=== PATIENT | female | born 1985 | race Caucasian/White ===

== ENCOUNTER 2018-07-21 14:51 | Inpatient (IN) | payer MEDICAID ==
[~2018-07-21] VITALS: Ht 165.1 cm; Wt 81.0 kg
[2018-07-21 15:02] VITALS: Ht 165.1 cm; Wt 81.0 kg
[2018-07-21 15:45] LABS: BASOPHIL % 0.4 % (0-2); PLATELET COUNT 262 x10^3mcL (130-400); RED CELL DISTRIBUTION WIDTH 14.5 % (11.5-14.5)
[2018-07-21 15:50] LABS: CALCIUM 8.2 mg/dL (8.5-10.1); CARBON DIOXIDE 24.2 mmol/L (21-32); CHLORIDE SERUM 106 mmol/L (98-107); CREATININE SERUM 0.6 mg/dL (0.6-1.0); GFR1 > 60 mL/min; GLUCOSE SERUM 139 mg/dL (74-106); POTASSIUM SERUM 3.1 mmol/L (3.5-5.1); SODIUM SERUM 141 mmol/L (136-145)
[2018-07-21 15:55] LABS: ALBUMIN 3.8 g/dL (3.4-5.0); ALKALINE PHOSPHATASE 98 U/L (46-116); ALT/SGPT 36 U/L (14-59); AST/SGOT 22 U/L (15-37); BILIRUBIN TOTAL 0.17 mg/dL (0.20-1.00); TOTAL PROTEIN, SERUM 7.7 g/dL (6.4-8.2)
[2018-07-21 20:38] VITALS: BP 117/56
[2018-07-21 21:13] LABS: CHOLESTEROL/HDL RATIO 2.6; MAGNESIUM 2.1 mg/dL (1.8-2.4); PHOSPHOROUS 2.5 mg/dL (2.5-4.9)
[2018-07-21 21:16] VITALS: BP 117/56
[2018-07-21 21:20] LABS: T3 TOTAL 1.11 ng/mL
[2018-07-21 21:44] LABS: FREE T4 0.75 ng/dL (0.76-1.46); FREE THYROXINE INDEX 1.9 ug/dL (1.4-4.5); T4(THYROXINE) 6.8 ug/dL (4.7-13.3)
[2018-07-21 23:50] LABS: microscopic required? YES; urine erythrocyte TRACE (NEGATIVE)
[2018-07-21 23:59] LABS: AMPHETAMINE QUAL UR NONE DETECTED (See below)
[2018-07-22 05:22] VITALS: BP 93/50
[2018-07-22 07:39] LABS: CARBON DIOXIDE 24.7 mmol/L (21-32); CHLORIDE SERUM 107 mmol/L (98-107); CREATININE SERUM 0.5 mg/dL (0.6-1.0); GFR1 > 60 mL/min; GLUCOSE SERUM 101 mg/dL (74-106); PHOSPHOROUS 2.7 mg/dL (2.5-4.9); POTASSIUM SERUM 3.8 mmol/L (3.5-5.1); SODIUM SERUM 141 mmol/L (136-145)
[2018-07-22 07:44] LABS: BASOPHIL % 0.5 % (0-2); PLATELET COUNT 263 x10^3mcL (130-400)
[2018-07-22 08:09] LABS: RED CELL DISTRIBUTION WIDTH 14.8 % (11.5-14.5)
[2018-07-22 10:13] VITALS: BP 94/44
[2018-07-22] MEDS ORDERED: KEFLEX500 M1 PO (10:51)
[2018-07-22] MEDS ORDERED: BD LACTINEX1.4 MG PO (10:52)
[2018-07-22] MEDS ORDERED: NORCO1 TA2 PO (10:53)
[2018-07-22 13:14] VITALS: BP 101/58
[2018-07-22 17:26] VITALS: BP 92/44
[2018-07-22 17:58] VITALS: BP 92/44
[2018-07-22] MEDS ORDERED: CYCLOBENZAPRINE5 MG PO (18:07)
== END 2018-07-22 19:32 | disposition home or self-care (01) | DRG 203 ==
LOC: ED 14:51 → DU 19:05
PROVIDERS: Emergency Medicine; Family Medicine
DX: M94.0 Chondrocostal junction syndrome [Tietze] (principal); E83.51 Hypocalcemia; N39.0 Urinary tract infection, site not specified; E87.6 Hypokalemia; F41.9 Anxiety disorder, unspecified; E66.9 Obesity, unspecified; Z68.33 Body mass index [BMI] 33.0-33.9, adult
CPT/HCPCS: 83880; 84439; 85378; 90658; 90732; J0696; J2060; J2270; J2405; J7030; Q0092